=== PATIENT | female | born 1940 | race Two or more races ===

== ENCOUNTER → 2016-10-02 | Outpatient (CLI) | payer MEDICARE, OTHER ==
[~2016-10-02] MED LIST: DENOSUMAB 60 MG/ML 1 ML SYRINGE SQ ONE
[2016-10-02 11:51] VITALS: BP 135/49; PULSE 59; RESP 24; TEMP 98.3
== END ==
LOC: PROCWHC3 11:25
PROVIDERS: ATTEND Internal Medicine Rheumatology
DX: M81.0 Age-related osteoporosis without current pathological fracture (principal)
CPT/HCPCS: 96372; J0897

== ENCOUNTER → 2018-02-22 | Outpatient (CLI) | payer MEDICARE ==
[2018-02-22 10:39] LABS: T4, Free (Free Thyroxine) 1.01 ng/dL (0.78-2.19)
[2018-02-22 19:23] LABS: Hemoglobin A1C 6.6 % (4.0-6.0)
== END | disposition home or self-care (01) ==
LOC: LABWHC1 09:16
PROVIDERS: ATTEND Internal Medicine
DX: E78.00 Pure hypercholesterolemia, unspecified (principal); E11.9 Type 2 diabetes mellitus without complications; I10 Essential (primary) hypertension
CPT/HCPCS: 36415; 80061; 83036; 84439; 84443

== ENCOUNTER → 2018-02-22 | Outpatient (CLI) | payer MEDICARE ==
[2018-02-22 10:03] LABS: Basophils % (A) 1 %; Eosinophils # (A) 0.3 k/uL (0-0.7); Eosinophils % (A) 4 %; HCT 35.9 % (34.0-46.0); HGB 11.5 gm/dL (11.4-16.0); Lymphocytes # (A) 0.9 k/uL (1.0-4.8); Lymphocytes % (A) 14 %; MCH 30.3 pg (25.0-35.0); MCHC 32.2 g/dL (31.0-37.0); MCV 94.2 fL (80.0-100.0); Mean Platelet Volume 6.9; Monocytes # (A) 0.3 k/uL (0-1.0); Monocytes % (A) 5 %; Neutrophils # (A) 4.8 k/uL (1.3-7.7); Neutrophils % (A) 75 %; Platelet Count 229 k/uL (150-450); RBC 3.81 m/uL (3.80-5.40); RDW 15.1 % (11.5-15.5); WBC 6.4 k/uL (3.8-10.6)
[2018-02-22 10:11] LABS: INR 1.1 (<1.2); Partial Thromboplastin Time 23.1 sec (22.0-30.0)
[2018-02-22 10:15] LABS: Albumin 3.7 g/dL (3.5-5.0); Calcium 8.8 mg/dL (8.4-10.2); Potassium 4.6 mmol/L (3.5-5.1); Total Bilirubin 0.5 mg/dL (0.2-1.3); Total Protein 6.1 g/dL (6.3-8.2)
[2018-02-22 10:51] LABS: Amorphous Sediment,Urine Moderate /hpf; Appearance,Urine Cloudy (Clear); Bilirubin,Urine Negative (Negative); Blood,Urine Negative (Negative); Color,Urine Yellow; Glucose,Urine (UA) Negative (Negative); Ketones,Urine Negative (Negative); Leukocyte Esterase,Urine Moderate (Negative); Nitrite,Urine Negative (Negative); Protein,Urine Trace (Negative); Specific Gravity,Urine 1.015 (1.001-1.035); Squamous Epithelial Cell,Urine 4 /hpf (0-4); Urobilinogen,Urine <2.0 mg/dL (<2.0); WBC,Urine 8 /hpf (0-5)
== END | disposition home or self-care (01) ==
LOC: LABPAT 09:11
PROVIDERS: ATTEND Orthopaedic Surgery Sports Medicine
DX: Z01.812 Encounter for preprocedural laboratory examination (principal); Z01.818 Encounter for other preprocedural examination; Z79.01 Long term (current) use of anticoagulants
CPT/HCPCS: 36415; 80053; 81001; 85025; 85610; 85730; 87070; 93005

== ENCOUNTER → 2018-11-15 | Outpatient (CLI) | payer MEDICARE, OTHER ==
[2018-11-15 11:57] LABS: Basophils # (A) 0.1 k/uL (0-0.2); Basophils % (A) 1 %; Eosinophils # (A) 0.3 k/uL (0-0.7); Eosinophils % (A) 4 %; HCT 34.6 % (34.0-46.0); HGB 10.8 gm/dL (11.4-16.0); Hypochromasia Slight; Lymphocytes # (A) 1.4 k/uL (1.0-4.8); Lymphocytes % (A) 20 %; MCH 28.9 pg (25.0-35.0); MCHC 31.1 g/dL (31.0-37.0); MCV 92.7 fL (80.0-100.0); Monocytes # (A) 0.4 k/uL (0-1.0); Monocytes % (A) 6 %; Neutrophils # (A) 4.7 k/uL (1.3-7.7); Neutrophils % (A) 67 %; Platelet Count 244 k/uL (150-450); RBC 3.74 m/uL (3.80-5.40); RDW 14.7 % (11.5-15.5)
[2018-11-15 12:07] LABS: Potassium 4.4 mmol/L (3.5-5.1)
[2018-11-15 12:16] LABS: Partial Thromboplastin Time 23.5 sec (22.0-30.0); Prothrombin Time 11.1 sec (9.0-12.0)
[2018-11-15 12:24] LABS: Appearance,Urine Clear (Clear); Bacteria,Urine Occasional /hpf; Bilirubin,Urine Negative (Negative); Blood,Urine Negative (Negative); Color,Urine Light Yellow; Glucose,Urine (UA) Negative (Negative); Ketones,Urine Negative (Negative); Leukocyte Esterase,Urine Large (Negative); Nitrite,Urine Negative (Negative); Protein,Urine Negative (Negative); RBC,Urine <1 /hpf (0-5); Specific Gravity,Urine 1.006 (1.001-1.035); Squamous Epithelial Cell,Urine 1 /hpf (0-4); Urobilinogen,Urine <2.0 mg/dL (<2.0); WBC,Urine 54 /hpf (0-5)
== END | disposition home or self-care (01) ==
LOC: LABPAT 10:48
PROVIDERS: ATTEND Orthopaedic Surgery
DX: Z01.818 Encounter for other preprocedural examination (principal); M16.11 Unilateral primary osteoarthritis, right hip; Z01.812 Encounter for preprocedural laboratory examination
CPT/HCPCS: 80051; 81001; 82565; 84520; 85025; 85610; 85730; 86850; 86900; 86901; 87070; 93005

== ENCOUNTER 2018-11-26 05:37 | Inpatient (IN) | payer MEDICARE, OTHER ==
[~2018-11-26 05:37] MED LIST changes: +ACETAMINOPHEN TAB 500 MG TAB PO ONE; +CLINDAMYCIN 900 MG in DEXTROSE 5% IN WATER 50 ML IVPB ONE; -DENOSUMAB 60 MG/ML 1 ML SYRINGE SQ ONE; +MELOXICAM 7.5 MG TAB PO ONE; +TRANEXAMIC ACID 1,000 MG in SODIUM CHLORIDE 0.9% 100 ML IVPB ONE
[2018-11-26] MEDS ORDERED: HYDROmorphone 0.5 MG/0.5 ML SYRINGE IVP PRN ×4 (05:50→06:58)
[2018-11-26] MEDS ORDERED: ONDANSETRON 4 MG/2 ML VIAL IVP ONE (05:50)
[2018-11-26] MEDS ORDERED: DEXAMETHASONE SOD PHOSPHATE 10 MG/ML 1 ML VIAL IV ONE (05:50)
[2018-11-26] MEDS ORDERED: MIDAZOLAM 2 MG/2 ML VIAL IV PRN (05:50)
[2018-11-26] MEDS ORDERED: ROPIVACAINE 246.25 MG, EPINEPHrine 0.5 MG, KETOROLAC 30 MG, cloNIDine HCL/PF 80 MCG, WA... MISCELLANE ONE ×5 (05:51)
[2018-11-26 06:44] LABS: Glucose,Whole Blood 113 mg/dL (75-99)
[2018-11-26] MEDS: LACTATED RINGERS 1,000 ML IV SCH (06:44)
[2018-11-26] MEDS ORDERED: LIDOCAINE 1% 20 ML VIAL (10MG/ML) FOR IV START INTRADERMA ONE (06:45)
[2018-11-26] MEDS ORDERED: ePHEDrine SULFATE/0.9% NACL/PF 50 MG/5 ML SYRINGE IV ONE (06:54)
[2018-11-26] MEDS ORDERED: fentaNYL (PF) 50 MCG/ML 2 ML AMP ONE (06:54)
[2018-11-26] MEDS ORDERED: SODIUM CHLORIDE 0.9% 100 ML BAG ONE (06:54)
[2018-11-26] MEDS ORDERED: PROPOFOL 10 MG/ML 20 ML VIAL IV ONE (06:54)
[2018-11-26] MEDS ORDERED: MIDAZOLAM 2 MG/2 ML VIAL ONE (06:54)
[2018-11-26] MEDS ORDERED: LACTATED RINGERS 1,000 ML BAG IV ONE (06:54)
[2018-11-26] MEDS ORDERED: TRANEXAMIC ACID 1,000 MG/10 ML VIAL ONE (06:54)
[2018-11-26] MEDS ORDERED: HEPARIN SODIUM,PORCINE 10,000 UNIT/ML 1 ML VIAL ONE (06:54)
[2018-11-26] MEDS ORDERED: hydrOXYzine PAMOATE 25 MG CAP PO PRN (06:58)
[2018-11-26] MEDS ORDERED: NALOXONE 0.4 MG/ML 1 ML VIAL IV PRN (06:58)
[2018-11-26] MEDS ORDERED: DIAZEPAM 5 MG TAB PO PRN (06:58)
[2018-11-26] MEDS ORDERED: ONDANSETRON 4 MG/2 ML VIAL IVP PRN (06:58)
[2018-11-26] MEDS ORDERED: HYDROcodone/APAP 5-325MG 1 EACH TAB PO PRN ×2 (06:58)
[2018-11-26] MEDS ORDERED: MAGNESIUM HYDROXIDE 2,400 MG/10 ML CUP PO PRN (06:58)
[2018-11-26] MEDS ORDERED: LACTATED RINGERS 1,000 ML IV ONE (08:15)
--- NOTE | 2018-11-26 08:40 | P.OP ---
Date of Procedure: 11/26/18 Preoperative Diagnosis: Severe osteoarthritis right hip Postoperative Diagnosis: Severe osteoarthritis right hip Procedure(s) Performed: Right total hip arthroplasty with a direct anterior approach Implants: Rivas and nephew Polarstem size 3 standard Rivas [employer] Nephew R3, 3 hole acetabular shell, 52 mm Rivas [employer] Nephew reflection 6.5 mm cancellus screw, 20 mm 2 Rivas [employer] Nephew R3, XLPE 20 acetabular liner Rivas & Nephew Oxinium femoral head 36 m, +4 All components were press-fit. The articulation is Oxinium on polyethylene. Anesthesia: spinal Surgeon: Ga Guillaume Flight Engineer Instructor #1: Agnes Butr Estimated Blood Loss (ml): 200 (65 mL returned with Cell Saver) Pathology: other (Femoral head) Condition: stable Disposition: PACU Indications for Procedure: After failure of conservative treatment we discussed the surgical and nonsurgical treatment options at length. Patient wishes to proceed with a total hip arthroplasty with a direct anterior approach. Complications specific to this procedure were discussed at length, including but not limited to infection, leg length discrepancy, dislocation, and nerve injury. Patient is aware of all these complications and informed consent was obtained Operative Findings: The operative findings are consistent with severe osteoarthritis of the right hip Description of Procedure: Patient was seen and evaluated in the preoperative area, consent was reviewed, and the surgical site was marked with a skin marker. Patient was then brought to the operating room and given prophylactic antibiotics intravenously. 1 g of Tranexamic acid was also given. A spinal anesthetic was administered by the anesthesia department. The patient was then placed on the [place] table with the bony prominences well-padded. The hip area was then prepped and draped in usual sterile fashion. A universal timeout was then performed, which confirmed the patient's name, surgical site, ALLERGIES, and procedure being performed. Next the incision site was located at 1 cm distal and 1 cm lateral to the anterior superior iliac spine. The skin and subcutaneous tissues were sharply incised. Incision was carefully dissected down to the fascia overlying the tensor fascia wicho muscle. This fascia was then incised in line with the incision. Next, using blunt finger dissection, the tensor fascia wicho muscle was dissected off its investing fascia. The muscle was then carefully retracted laterally with a cobra retractor over the lateral neck of the femur. Next, the circumflex vessels were identified and cauterized using the AquaMantis device. The anterior hip capsule was then exposed. The capsule was then opened and an inverted T fashion. Cobra retractors were then placed intracapsularly. The proximal femur was then visualized. The femoral neck was then osteotomized appropriate level above the lesser trochanter. Small amount of traction was placed with the [place] table. A small wedge of bone was then removed from the remaining femoral head. Next, using a corkscrew femoral head was easily removed from the acetabulum. On gross visual inspection, the femoral head had complete loss of articular cartilage in mu ltiple periarticular osteophytes. Attention was then turned to the acetabulum. the acetabulum was exposed and any remaining labrum was excised. Sequential reaming of the acetabulum was performed using fluoroscopic guidance. When the appropriate size was reached, a trial was then placed. The position and fit of the trial was checked with fluoroscopy. The trial was then removed. Then, using fluoroscopic guidance, the final implant was impacted at 20 of anteversion and 40 of abduction, and fully seated in the acetabulum. 2 screws were then placed in the acetabulum. Again fluoroscopy was used to check position of the screws. Next, the liner was then impacted, with a 20 elevated liner located in the anterior superior quadrant. Component locking was confirmed. Attention was then directed to the femur. With the aid of the [place] table, the femur was externally rotated to approximately 130, extended, and abducted under the opposite leg. A side hook was then placed under the proximal femur, and the side hook elevator was used to elevate the proximal femur. Retractors were then placed. A capsular release was performed, as well as a release of the conjoined tendon, which afforded excellent visualization of the proximal femur. Next, a box osteotome was used to lateralize the proximal femur. A shipping and receiving material handler was then used to locate the femoral canal. Sequential broaching was then performed with appropriate size which afforded excellent fixation in the proximal femur. A trial was then placed with appropriate head and neck, and the hip was gently reduced with the aid of the [place] table. Fluoroscopy was then used to check position of the components, as well as to ensure equal leg lengths. The hip was then gently dislocated and the trials were then removed. Final implants were then impacted and the hip was again reduced. Final fluoroscopic x-rays confirmed that the components were in anatomic position, as well as equal leg lengths. The hip was also taken through range of motion, and found to be stable. The hip was then copiously irrigated with antibiotic solution with pulsatile lavage. The hip was then irrigated with Irrisept solution. The soft tissues were then injected with a ropivacaine solution, which consisted of 246.25 mg of ropivacaine, 0.5 mg of epinephrine, 30 mg of Toradol, 80 g of clonidine, and 48.45 mL of sterile water, for a total of 100 mL of fluid injected. A second dose of 1 g of Tranexamic acid was also given. the fascia was then closed with 2-0 strata fix suture. The subcutaneous tissue was closed with 3-0 Vicryl. The subcuticular tissue was closed with 3-0 strata fix suture. The skin was then closed with Dermabond glue and a sterile silver dressing. The patient was then transferred to the recovery room in stable co ndition. The dental laboratory assistant YOANDY Ling was required due to the complexity of surgery, and the need for skilled surgical instrument repair specialist for positioning, draping, exposure, retraction, and closure of the wound.
[2018-11-26] MEDS ORDERED: diphenhydrAMINE 50 MG/ML 1 ML VIAL IVP ONE (08:53)
--- NOTE | 2018-11-26 09:12 | XR ---
EXAMINATION TYPE: XR Hip Limited RT DATE OF EXAM: 11/26/2018 COMPARISON: NONE HISTORY: 78-year-old female status post hip surgery, assess surgical alignment TECHNIQUE: Single AP portable view FINDINGS: Image shows placement of right total hip arthroplasty. Acetabular cup and femoral stem component of t he prosthesis appear well seated without periprosthetic fracture. Alignment grossly anatomic. Scatter ed soft tissue air related to recent operation. IMPRESSION: Uncomplicated right hip total arthroplasty.
--- NOTE | 2018-11-26 10:55 | FL ---
Fluoroscopy HISTORY: Hip arthroplasty 52 seconds fluoroscopy time supplied to the referring clinician. 2 intraoperative C-arm images docum ent the procedure. See dictated report from orthopedic surgery.
--- NOTE | 2018-11-26 10:56 | XR ---
Limited right hip HISTORY: Right hip arthroplasty 2 intraoperative C-arm images document the procedure.
[2018-11-26] MEDS: ASPIRIN 325 MG TAB PO SCH ×2 (12:09→20:52)
[2018-11-26] MEDS: SODIUM CHLORIDE 0.9% 1,000 ML IV SCH ×2 (12:10→22:27)
[2018-11-26 12:13] VITALS: BMI 33.9
[2018-11-26 12:22] LABS: Glucose,Whole Blood 162 mg/dL (75-99)
[2018-11-26] MEDS: CLINDAMYCIN 900 MG in DEXTROSE 5% IN WATER 50 ML IVPB SCH ×4 (16:49→23:00)
[2018-11-26] MEDS: metFORMIN 500 MG TAB PO SCH (16:56)
[2018-11-26] MEDS: INSULIN ASPART (NovoLOG) 100 UNIT/ML VIAL SQ SCH ×2 (16:56→20:52)
[2018-11-26 17:05] LABS: Glucose,Whole Blood 235 mg/dL (75-99)
[2018-11-26 20:14] LABS: Glucose,Whole Blood 185 mg/dL (75-99)
[2018-11-26] MEDS ORDERED: SENNOSIDES-DOCUSATE SODIUM 1 EACH TAB PO SCH (21:00)
[2018-11-27] MEDS: LACTATED RINGERS 1,000 ML IV SCH (07:06)
[2018-11-27 07:11] LABS: Glucose,Whole Blood 107 mg/dL (75-99)
[2018-11-27] MEDS: INSULIN ASPART (NovoLOG) 100 UNIT/ML VIAL SQ SCH (07:21)
[2018-11-27 07:22] VITALS: BP 106/58; PULSE 73; RESP 12; TEMP 98.5
[2018-11-27] MEDS ORDERED: PANTOPRAZOLE 40 MG TABLET PO SCH (07:30)
[2018-11-27] MEDS: metFORMIN 500 MG TAB PO SCH (08:05)
[2018-11-27] MEDS: ASPIRIN 325 MG TAB PO SCH (08:05)
--- NOTE | 2018-11-27 08:49 | P.DS ---
Providers Date of admission: 11/26/18 05:37 Expected date of discharge: 11/27/18 Attending physician: Ga Guillaume Consults: 11/26/18 06:58 Consult Physician Routine Consulting Provider: Sona Friedman Consult Reason/Comments: medical management Do you want consulting provider notified?: Yes 11/26/18 11:51 Consult Physician Routine Consulting Provider: Fausto Grayson Consult Reason/Comments: medical management Do you want consulting provider notified?: Yes Primary care physician: Sona Friedman - Discharge Diagnosis(es) (1) Osteoarthritis of right hip Current Visit: Yes Status: Acute (2) Status post total hip replacement, right Current Visit: Yes Status: Acute Hospital Course: This is a 78-year-old female with known history of degenerative arthritis of the right hip. The patient presents for evaluation. After discussion and consideration patient elects to proceed with total hip arthroplasty. The patient is seen preoperatively by Dr. Guillaume and medically cleared for surgery by their primary care physician. Patient is admitted to [facility] on 11/26/2018 for total hip arthroplasty. The procedures performed without complication or sequelae. The patient is doing well postoperatively. Labs and vital signs are stable on day of discharge. On day of discharge patient's hip incision is healing well. There is minimal erythema. There is no drainage noted at this time. There is minimal soft tissue swelling to the hip and thigh. Patient has full foot and ankle motion without difficulty or pain. Calf is soft and nontender to palpation. Neurovascular status to the right lower extremity is intact. Patient is discharged home in good condition. Opioid start talking form is reviewed and signed at patient bedside. Please see med rec for accurate list of home me dications. Plan - Discharge Summary Discharge Rx Participant: Yes New Discharge Prescriptions: New Aspirin 325 mg PO BID #60 tab HYDROcodone/APAP 5-325MG [[place] 5-325] 1 - 2 tab PO Q6HR PRN #56 tab PRN Reason: Pain Sennosides [Senokot] 1 tab PO BID #60 tablet No Action Omeprazole [PriLOSEC] 20 mg PO AC-BRKFST Lisinopril-Hctz 10-12.5 mg [Zestoretic 10-12.5] 1 tab PO DAILY metFORMIN HCL [Glucophage] 1,000 mg PO BID Cholecalciferol [Vitamin D3] 1,000 units PO DAILY Ascorbic Acid [Vitamin C] 1,000 mg PO QAM Potassium 99 mg PO QAM Atorvastatin [Lipitor] 40 mg PO DAILY Prolia(Dose Unknown) 1 dose IJ Q180D Biotin 10,000 mcg PO DAILY Acetaminophen [Tylenol Extra Strength] 1,000 mg PO BID PRN PRN Reason: Pain Docusate [Colace] 100 mg PO BID #60 capsule [place]-3 Fatty Acids [[place]-3] 1,000 mg PO DAILY Magnesium/Calcium/Zinc 1 tab PO DAILY Discharge Medication List Lisinopril-Hctz 10-12.5 mg [Zestoretic 10-12.5] 1 tab PO DAILY 03/19/14 [History] Omeprazole [PriLOSEC] 20 mg PO AC-BRKFST 03/19/14 [History] metFORMIN HCL [Glucophage] 1,000 mg PO BID 03/19/14 [History] Cholecalciferol [Vitamin D3] 1,000 units PO DAILY 09/17/14 [History] Acetaminophen [Tylenol Extra Strength] 1,000 mg PO BID PRN 02/26/18 [History] Ascorbic Acid [Vitamin C] 1,000 mg PO QAM 02/26/18 [History] Atorvastatin [Lipitor] 40 mg PO DAILY 02/26/18 [History] Biotin 10,000 mcg PO DAILY 02/26/18 [History] Potassium 99 mg PO QAM 02/26/18 [History] Prolia(Dose Unknown) 1 dose IJ Q180D 02/26/18 [History] Docusate [Colace] 100 mg PO BID #60 capsule 03/08/18 [Rx] Magnesium/Calcium/Zinc 1 tab PO DAILY 11/21/18 [History] [place]-3 Fatty Acids [[place]avener-3] 1,000 mg PO DAILY 11/21/18 [History] Aspirin 325 mg PO BID #60 tab 11/27/18 [Rx] HYDROcodone/APAP 5-325MG [[place] 5-325] 1 - 2 tab PO Q6HR PRN #56 tab 11/27/18 [Rx] Sennosides [Senokot] 1 tab PO BID #60 tablet 11/27/18 [Rx] Follow up Appointment(s)/Referral(s): Ga Guillaume DO [Doctor of Osteopathic Medicine] - 2 Weeks Activity/Diet/Wound Care/Special Instructions: Weightbearing as tolerated with walker. Leave dressing intact. Dressing may be removed by home care nurse or by patient in 10 days. May shower with dressing on. Please follow-up with [facility] in 2 weeks and call with any questions or concerns, . Discharge Disposition: HOME WITH HOME HEALTH SERVICES
[2018-11-27] MEDS ORDERED: MELOXICAM 7.5 MG TAB PO SCH (09:00)
[2018-11-27] MEDS ORDERED: LISINOPRIL-HCTZ 10-12.5 MG 1 EACH TAB PO SCH (09:00)
[2018-11-27] MEDS ORDERED: ATORVASTATIN 40 MG TAB PO SCH (09:00)
[2018-11-27 09:14] LABS: Basophils % (A) 0 %; Eosinophils # (A) 0.1 k/uL (0-0.7); Eosinophils % (A) 1 %; HCT 29.2 % (34.0-46.0); Hypochromasia Moderate; Lymphocytes # (A) 1.5 k/uL (1.0-4.8); Lymphocytes % (A) 17 %; MCH 29.2 pg (25.0-35.0); MCHC 31.6 g/dL (31.0-37.0); MCV 92.3 fL (80.0-100.0); Mean Platelet Volume 7.4; Monocytes # (A) 0.6 k/uL (0-1.0); Monocytes % (A) 7 %; Neutrophils # (A) 6.4 k/uL (1.3-7.7); Neutrophils % (A) 74 %; Platelet Count 227 k/uL (150-450); RBC 3.16 m/uL (3.80-5.40); RDW 14.5 % (11.5-15.5); WBC 8.6 k/uL (3.8-10.6)
[2018-11-27 09:21] LABS: HGB 9.2 gm/dL (11.4-16.0)
[2018-11-27] MEDS: SODIUM CHLORIDE 0.9% 1,000 ML IV SCH (10:29)
--- NOTE | 2018-11-27 10:39 | P.CONS ---
History of Present Illness - Reason for Consult Consult date: 11/26/18 Medical management of hypertension and other medical problems - Chief Complaint Status post right total hip arthroplasty - History of Present Illness Patient is a 78-year-old female with a known history of hypertension, diabetes type 2 [id number], hyperlipidemia, osteoarthritis of multiple joints was admitted to the hospital for right total hip arthroplasty. Patient underwent Right total hip arthroplasty with a direct anterior approach. Tolerated the procedure very well. Currently patient is little drowsy from anesthesia. Denied any complaints of chest pain or shortness of breath. No nausea vomiting or abdominal pain. No diarrhea or dysuria. No headache or dizziness or l ightheadedness. Right hip pain is fairly controlled. Review of Systems Constitutional: Patient denies any fever or chills . No generalized weakness or weight loss. Abdomen: Patient denied nausea vomiting and diarrhea and abdominal pain. Cardiovascular: Patient denies any chest pain or short of breath no palpitations. Respiratory: patient denied any cough is from production. No shortness of breath Neurologic: Patient denied any numbness or tingling headache. Musculoskeletal: Patient denies any complaints of joint swelling or deformity. Skin: Negative Psychiatric: Negative Endocrine: No heat or cold intolerance. No recent weight gain. Genitourinary: No dysuria or hematuria. All other 14 point ROS negative except the above Past Medical History Past Medical History: Diabetes Mellitus, Hyperlipidemia, Hypertension Additional Past Medical History / Comment(s): Hx. osteoporosis History of Any Multi-Drug Resistant Organisms: None Reported Past Surgical History: Joint Replacement, Orthopedic Surgery, Tonsillectomy Additional Past Surgical History / Comment(s): total right knee, vincent cataracts, Rectal sx X2, Hx. eyelids lifted Hx. trigger finger release left pointer finger Past Anesthesia/Blood Transfusion Reactions: No Reported Reaction Past Psychological History: No Psychological Hx Reported Smoking Status: Former smoker Past Alcohol Use History: Occasional Additional Past Alcohol Use History / Comment(s): quit smoking 2001, smoked for 48 yrs, 1 PPD Past Drug Use History: None Reported - Past Family History Sister(s) Family Medical History: Cancer Medications and Allergies Home Medications Medication Instructions Recorded Confirmed Type Lisinopril-Hctz 10-12.5 mg 1 tab PO DAILY 03/19/14 11/26/18 History [Zestoretic 10-12.5] Omeprazole [PriLOSEC] 20 mg PO AC-BRKFST 03/19/14 11/26/18 History metFORMIN HCL [Glucophage] 1,000 mg PO BID 03/19/14 11/26/18 History Cholecalciferol [Vitamin D3] 1,000 units PO DAILY 09/17/14 11/26/18 History Acetaminophen [Tylenol Extra 1,000 mg PO BID PRN 02/26/18 11/26/18 History Strength] Ascorbic Acid [Vitamin C] 1,000 mg PO QAM 02/26/18 11/26/18 History Atorvastatin [Lipitor] 40 mg PO DAILY 02/26/18 11/26/18 History Biotin 10,000 mcg PO DAILY 02/26/18 11/26/18 History Potassium 99 mg PO QAM 02/26/18 11/26/18 History Prolia(Dose Unknown) 1 dose IJ Q180D 02/26/18 11/26/18 History Docusate [Colace] 100 mg PO BID #60 capsule 03/08/18 11/26/18 Rx Magnesium/Calcium/Zinc 1 tab PO DAILY 11/21/18 11/26/18 History [place]-3 Fatty Acids [[place]-3] 1,000 mg PO DAILY 11/21/18 11/26/18 History Aspirin 325 mg PO BID #60 tab 11/27/18 Rx HYDROcodone/APAP 5-325MG [[place] 1 - 2 tab PO Q6HR PRN #56 tab 11/27/18 Rx 5-325] Sennosides [Senokot] 1 tab PO BID #60 tablet 11/27/18 Rx Allergies Allergy/AdvReac Type Severity Reaction Status Date / Time cephalexin [From Keflex] Allergy Unknown Unknown Verified 11/26/18 13:09 Childhood Physical Exam Vitals: Vital Signs Temp Pulse Pulse Pulse Resp BP BP 11/26/18 12:05 98.0 F 91 18 108/64 11/26/18 11:30 78 20 103/47 11/26/18 11:00 81 18 108/65 11/26/18 10:30 81 18 92/48 11/26/18 10:00 82 18 94/48 11/26/18 09:45 81 16 80/42 11/26/18 09:30 77 16 85/40 11/26/18 09:15 80 16 113/48 11/26/18 09:01 90 18 102/44 11/26/18 08:47 97.4 F L 99 16 85/48 11/26/18 06:18 98.3 F 69 16 137/65 Pulse Ox 11/26/18 12:05 93 L 11/26/18 11:30 98 11/26/18 11:00 97 11/26/18 10:30 97 11/26/18 10:00 97 11/26/18 09:45 92 L 11/26/18 09:30 92 L 11/26/18 09:15 92 L 11/26/18 09:01 96 11/26/18 08:47 96 11/26/18 06:18 95 Intake and Output 11/25/18 11/26/18 11/26/18 22:59 06:59 14:59 Intake Total 1000 956 Output Total 200 Balance 1000 756 Intake: IV 1000 956 Output: Estimated Blood Loss 200 PHYSICAL EXAMINATION: Patient is lying in the bed comfortably, no acute distress, awake alert and oriented.. HEENT: Normocephalic. Neck is supple. Pupils reactive. Nostrils clear. Oral cavity is moist. Ears reveal no drainage. Neck reveals no JVD, carotid bruits, or thyromegaly. CHEST EXAMINATION: Trachea is central. Symmetrical expansion. Lung still clear to auscultation and percussion. CARDIAC: Normal S1, S2 with no gallops. No murmurs ABDOMEN: Soft. Bowel sounds normal. No organomegaly. No abdominal bruits. Extremities: reveal no edema. No clubbing or cyanosis Neurologically awake, alert, oriented x3 with well-coordinated movements. No focal deficits noted Skin: No rash or skin lesions. Psychiatric: Coperative. Nonsuicidal Musculoskeletal: No joint swelling or deformity. Normal range of motion. Results CBC & Chem 7: 11/27/18 08:24 Labs: Abnormal Lab Results - Last 24 Hours (Table) 11/26/18 11/26/18 Range/Units 06:30 12:06 POC Glucose (mg/dL) 113 H 162 H (75-99) mg/dL Assessment and Plan Assessment: Status post right total hip arthroplasty postoperative day 0. Diabetes type 2 with hyperglycemia. Continue with metformin and insulin sliding scale will be added. Hypertension. Blood pressure in the lower side. Will hold blood pressure medications. Hyperlipidemia Obesity with BMI 33.7 Osteoporosis Primary Osteoarthritis of multiple joints Previous history of smoking DVT prophylaxis Plan: Patient be continued on pain medications and bowel regimen. Encourage ambulation and incentive spirometry. DVT prophylaxis as per orthopedic surgery recommendations. We will hold blood pressure medications. Continue with metformin and insulin sliding scale will be added. Otherwise continue the current management. Will follow closely. Further recommendations based on the critical course. Thank you for your consult. Time with Patient: Greater than 30
== END 2018-11-27 12:01 | disposition home health service (06) | DRG 470 ==
LOC: 2ORMAIN 05:37 → 4SSUR 11:43
PROVIDERS: ADMIT Orthopaedic Surgery; ATTEND Orthopaedic Surgery
PROC: 30233N0 Transfusion of Autologous Red Blood Cells into Peripheral Vein, Percutaneous Approach (ICD-10-PCS; 2018-11-26)
PROC: 0SR906A Replacement of Right Hip Joint with Oxidized Zirconium on Polyethylene Synthetic Substitute, Uncemented, Open Approach (ICD-10-PCS; principal; 2018-11-26 07:00)
DX: M15.9 Polyosteoarthritis, unspecified (principal); E11.65 Type 2 diabetes mellitus with hyperglycemia; E66.9 Obesity, unspecified; E78.5 Hyperlipidemia, unspecified; I10 Essential (primary) hypertension; M81.0 Age-related osteoporosis without current pathological fracture; K21.9 Gastro-esophageal reflux disease without esophagitis; Z68.33 Body mass index [BMI] 33.0-33.9, adult; Z79.82 Long term (current) use of aspirin; Z79.84 Long term (current) use of oral hypoglycemic drugs; Z79.899 Other long term (current) drug therapy; Z87.891 Personal history of nicotine dependence; Z98.42 Cataract extraction status, left eye; Z98.41 Cataract extraction status, right eye; Z96.1 Presence of intraocular lens; Z96.651 Presence of right artificial knee joint; Z82.49 Family history of ischemic heart disease and other diseases of the circulatory system
CPT/HCPCS: 73501; 85025; 86850; 86891; 86900; 86901; 88300

== ENCOUNTER → 2021-03-31 | Outpatient (CLI) | payer MEDICARE, OTHER ==
--- NOTE | 2021-03-31 15:08 | XR ---
EXAMINATION TYPE: XR chest 2V DATE OF EXAM: 03/31/2021 COMPARISON: NONE HISTORY: Shortness of breath TECHNIQUE: Frontal and lateral views of the chest are obtained. FINDINGS: There is no focal air space opacity, pleural effusion, or pneumothorax seen. The cardiac silhouette size is within normal limits. There are prominent lung volumes with flattening the hemidi aphragms, increased AP diameter chest and retrosternal airspace. There is a retrocardiac density with central lucency consistent with hiatal hernia and partial intrathoracic stomach. Aorta is dense. Int erstitium is mildly increased. Pulmonary artery is prominent. The osseous structures are intact. IMPRESSION: There may be underlying interstitial lung disease, there is hiatal hernia with partial i ntrathoracic stomach, correlate for pulmonary artery hypertension, COPD.
== END | disposition home or self-care (01) ==
LOC: RADXRYALE 13:13
PROVIDERS: ATTEND Internal Medicine Cardiovascular Disease
DX: K44.9 Diaphragmatic hernia without obstruction or gangrene (principal)
CPT/HCPCS: 71046

== ENCOUNTER → 2021-09-02 | Outpatient (CLI) | payer MEDICARE, OTHER ==
--- NOTE | 2021-09-08 15:12 | PE ---
Nuclear medicine PET/CT HISTORY: Solitary pulmonary nodule, initial Patient received 10.1 mCi F-18 FDG intravenously and delayed scanning was performed from the skull ba se to the mid thighs. A localization and attenuation correction CT scan was performed. Correlation to CT chest dated 08/11/2021 Chest and neck: There is mediastinal, left hilar adenopathy with precarinal and subcarinal abnormal n odes with associated hypermetabolic uptake, SUV 11.1 precarinal region, 10.8 left hilar region. Left lower lobe lung mass is present, there is associated hypermetabolic uptake SUV 10. No axillary, cervi omkar, supraclavicular adenopathy. Prevascular enlarged node on axial image 78 shows no associated upta ke. Hiatal hernia with partial intrathoracic stomach is present. There is pericardial effusion. Coron carrie artery calcifications are noted. Atheromatous change present within the aorta, aneurysm of the as cending aorta, 4.2 cm, proximal descending aorta 3.5 cm, aorta at the hiatus measures 3.3 cm. Pulmona ry arteries enlarged, correlate for pulmonary artery hypertension, the heart is enlarged. No pleural effusion. The lungs show interstitial changes, centrilobular emphysematous change, there is associate d scarring. Low dense soft tissue nodule anterior to the ascending aorta shows no uptake. ABDOMEN: There is no suspicious uptake. Mild prominence of the adrenal glands is noted which are low density. There is no evident liver mass or retroperitoneal adenopathy. Atheromatous change present wi thin the aorta which is ectatic in the infrarenal location. Uptake along the colon is indeterminate b ut likely physiologic. There is no ascites. Uterus and adnexal structures within normal limits. Osseous structures: There is streak artifact due to patient's right hip prosthesis. No suspicious upt sera. Degenerative disc changes and facet arthropathy noted in the spine. Some inflammatory change not ed in left maxillary sinus. Arthropathy noted at the sacroiliac joints. 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 Cardiomegaly and pericardia l effusion.
== END | disposition home or self-care (01) ==
LOC: RADPETMAIN 12:37
PROVIDERS: ATTEND Nurse Practitioner Adult Health
DX: R91.1 Solitary pulmonary nodule (principal); I31.3 Pericardial effusion (noninflammatory); I51.7 Cardiomegaly
CPT/HCPCS: 78815; A9552

== ENCOUNTER 2021-10-06 10:54 | Day surgery (SDC) | payer MEDICARE, OTHER ==
[2021-10-04 14:16] VITALS: BMI 35.0
[~2021-10-06 10:54] MED LIST changes: -ACETAMINOPHEN TAB 500 MG TAB PO ONE; +ALBUTEROL NEB (CONC) 2.5 MG/0.5 ML INHALATION ONE; -CLINDAMYCIN 900 MG in DEXTROSE 5% IN WATER 50 ML IVPB ONE; +LACTATED RINGERS 1,000 ML IV SCH; +LIDOCAINE 1% (10MG/ML) FOR IV START INTRADERMA PRN; +LIDOCAINE 2% (PF) 20 MG/ML 5 ML VIAL INHALATION ONE; +LIDOCAINE VISCOUS 300 MG/15 ML CUP MUCOUS MEM ONE; -MELOXICAM 7.5 MG TAB PO ONE; +MIDAZOLAM 2 MG/2 ML VIAL IV PRN; +SODIUM CHLORIDE 0.9% 1,000 ML IV SCH; -TRANEXAMIC ACID 1,000 MG in SODIUM CHLORIDE 0.9% 100 ML IVPB ONE
[2021-10-06 11:45] LABS: Glucose,Whole Blood 122 mg/dL (75-99)
[2021-10-06] MEDS ORDERED: LIDOCAINE 1% INJ 10MG/ML (20 ML MDV) ONE (12:52)
[2021-10-06] MEDS ORDERED: ROCURONIUM 10 MG/ML (5 ML VIAL) IV ONE (12:52)
[2021-10-06] MEDS ORDERED: SUCCINYLCHOLINE CHLORIDE 100 MG/5 ML SYR IV ONE (12:52)
[2021-10-06] MEDS ORDERED: PROPOFOL 10 MG/ML 20 ML VIAL IV ONE (12:52)
--- NOTE | 2021-10-06 12:56 | CT ---
EXAMINATION TYPE: CT Chest krissy Ojeda Protocol DATE OF EXAM: 10/06/2021 COMPARISON: 08/11/2021, PET scan to 1821 HISTORY: Bronchoscopy guidance. CT DLP: 610 mGycm Automated exposure control for dose reduction was used. FINDINGS: AIRWAYS: Unremarkable. LUNGS: There is a 3.5 cm ill-defined left lower lobe bronchogenic mass consistent with bronchogenic c arcinoma unless proven otherwise. There are prominent emphysematous changes. No acute lung parenchyma l findings. PLEURAL SPACES: Unremarkable. MEDIASTINUM: The pulmonary arterial tree is prominent in caliber suggesting pulmonary hypertension. A winsome atherosclerosis with mild aneurysmal dilation measuring 4.1 cm. There is mild cardiomegaly and a small pericardial effusion. Prominent left and right coronary calcifications noted. There is confluent pretracheal, precarinal, and subcarinal mediastinal adenopathy, [id number] d egree - and mild left hilar adenopathy also noted. Narrowing of the left mainstem bronchus noted whic h may be related to external compression from the adenopathy. Large hiatal hernia noted. OTHER: No axillary or supraclavicular adenopathy. No splenomegaly. No visualized subdiaphragmatic nancy nopathy. Is a hiatal hernia noted. Thickening of bilateral adrenal nonspecific. Hypertrophic and dege nerative changes of the spine. IMPRESSION: 1. . 3.5 CM LEFT LOWER LOBE BRONCHOGENIC MASS CONSISTENT WITH CARCINOMA STABLE FROM PRIOR EXAM. . 2. PULMONARY ARTERY ENLARGEMENT CORRELATE FOR PULMONARY ARTERIAL HYPERTENSION. CARDIOMEGALY AND SM ALL TO MODERATE PERICARDIAL EFFUSION ALSO NOTED. Pericardial effusion appears progressed. 3. MEDIASTINAL/HILAR ADENOPATHY. 4. COPD
[2021-10-06 14:12] VITALS: TEMP 97.5
--- NOTE | 2021-10-06 14:18 | P.PCN ---
Date of Procedure: 10/06/21 Preoperative Diagnosis: left infrahilar mass, mediastinal lymphadenopathy Postoperative Diagnosis: left infrahilar mass, mediastinal lymphadenopathy Procedure(s) Performed: endobronchial ultrasound/EBUS EBUS guided transbronchial left hilar mass EBUS guided transbronchial needle aspirate of the paratracheal mass/lymphadenopathy Endobronchial biopsy/brushing of a left lower lobe bronchus endobronchial growth/tumor. Anesthesia: GETA Surgeon: Rossana Reeves Degreaser Operator #1: Maria Isabel Lynn Pathology: other Condition: stable Disposition: same day Operative Findings: 81-year-old female patient referred to us for lung mass. The patient had a left lower lobe posterior segment mass in addition to left infrahilar mass and mediastinal lymphadenopathy. The patient was scheduled to undergo an indication of bronchoscopy and endobronchial ultrasound. The patient was brought in to the hospital with a CAT scan of the chest was done for planning purposes and appropriate mapping of the left lower lobe mass was done. Following that, the V pad was applied to the patient's chest and the patient was brought into the endoscopy suite where she was intubated and placed on a mechanical ventilator in the usual fashion. A consent was obtained preoperatively. A timeout was also done. Following intubation mechanical ventilation, the airway was secured and ET tube was noted to be around 3 cm above the fredi. The flexible bronchoscopy was done for airway inspection and the distal trachea was within normal limits. Examination of the right side included the right mainstem bronchus, right upper lobe bronchus, bronchus intermedius, right middle lobe bronchus and right lower lobe bronchus. Examination of the right that was within normal limits. The examination of the left side include the left mainstem bronchus and left mainstem bronchus was obviously abnormal and the air was being gradually tapered off distally. The secondary fredi the left upper lobe and the left lower lobe was noted. I noted that the left mainstem bronchus was being medially compressed and narrowed. There was also some endobronchial growth /irregularities in the distal left mainstem bronchus just before the branching between the upper and left lower lobe. Along the posterior segment of the posterior surface of the left mainstem bronchus and there were polypoid lesions that were quite friable and irregular, highly suspicious for endobronchial extension of the left infrahilar mass. The bronchoscope was moved to the lower lobe bronchus and the various segments were noted including the anterior, lateral and posterior and the superior. Examination of the left upper lobe was essentially within normal limits and this included the lingular segment and apical posterior and anterior segments. Following that, the Endobronchial (EBUS) ultrasound was introduced and undergoes direct examination, we were able to observe a large paratracheal lymphadenopathy/mass that was more than 3 cm in size and another mass was also noted in the left infrahilar area again measuring more than 3 cm in size. Using EBUS guidance, transbronchial needle aspirate of the left infrahilar mass was done, a total of 4 passes and transbronchial needle aspirate of the paratracheal mass was done a total of 5 passes. The adequacy of the samples were confirmed by pathology. Cell block were prepared. Following that, the EBUS bronchoscope was removed. Using a regular bronch oscope, endobronchial biopsies of the distal left mainstem posterior wall endobronchial growth was performed. Endobronchial brushings of the same area was done. At the completion of the procedure, the navigational guidance was used to identify the left lower lobe posterior mass. The left lower lobe posterior mass was not found to be accessible and accordingly, no biopsies of the left lower lobe mass was done. Therapeutic airway suctioning was done. Bronchoscope was removed. Patient was extubated and transferred to recovery in stable condition. The samples collected by the EBUS from the mediastinum and the left hilum were enough to establish final diagnosis on this patient. Further recommendations are to follow accordingly.
[2021-10-06 14:52] VITALS: RESP 20
[2021-10-06] MEDS ORDERED: FUROSEMIDE 10 MG/ML 2 ML VIAL IV ONE (15:08)
--- NOTE | 2021-10-06 15:36 | XR ---
EXAMINATION TYPE: XR chest 1V DATE OF EXAM: 10/06/2021 COMPARISON: 03/31/2021 INDICATION: Cough post bronchoscopy TECHNIQUE: Single frontal view of the chest is obtained. FINDINGS: The heart size is enlarged. The pulmonary vasculature is normal. Mild diffuse increased lung markings are present on the left. Focal consolidations in the posterior l eft lung base and at the right costophrenic angle. No pneumothorax is evident. IMPRESSION: 1. No pneumothorax post bronchoscopy. 2. Left lower lobe consolidation.
[2021-10-06 15:39] VITALS: BP 123/69
[2021-10-06 16:03] VITALS: PULSE 71
== END 2021-10-06 16:17 ==
LOC: ORWHC2ENDO 10:54
PROVIDERS: ATTEND Internal Medicine Critical Care Medicine
DX: C34.32 Malignant neoplasm of lower lobe, left bronchus or lung (principal); E78.00 Pure hypercholesterolemia, unspecified; J44.9 Chronic obstructive pulmonary disease, unspecified; K44.9 Diaphragmatic hernia without obstruction or gangrene; I10 Essential (primary) hypertension; E11.9 Type 2 diabetes mellitus without complications; Z87.891 Personal history of nicotine dependence; Z86.16 Personal history of COVID-19; Z96.641 Presence of right artificial hip joint; Z96.651 Presence of right artificial knee joint; Z98.890 Other specified postprocedural states; Z79.84 Long term (current) use of oral hypoglycemic drugs; Z79.51 Long term (current) use of inhaled steroids; Z79.899 Other long term (current) drug therapy; Z99.81 Dependence on supplemental oxygen
CPT/HCPCS: 88104; 88305; 88173; 71045; 71250; 31625; 31623; 31627; 31653; J1940; J2001; J0330; J2704; 88341; 88342

== ENCOUNTER → 2021-10-21 | Outpatient (CLI) | payer MEDICARE, OTHER ==
--- NOTE | 2021-10-23 21:38 | MR ---
EXAMINATION TYPE: MR brain wo/w con DATE OF EXAM: 10/21/2021 COMPARISON: NONE HISTORY: Lung cancer. TECHNIQUE: Multiplanar, multisequence images of the brain and brainstem is performed without and with IV contras t, utilizing 9 mL intravenous Gadavist . FINDINGS: There is background mild ventricular and sulcal prominence. There is background scattered f ocal and confluent areas of T2 hyperintensity seen throughout the white matter bilaterally greatest i nvolving the bilateral frontal lobes. Midline structures demonstrate normal morphology. The craniocervical junction appears within normal limits. Postcontrast images show single ring-enhancing 7 x 7 x 6 mm lesion right frontal lobe axial image 29 and coronal image 19 with restricted diffusion consistent with metastatic focus as there is some surr ounding vasogenic edema extending inferiorly. Dural venous sinuses are patent. The globes are intact. There is mild to moderate mucosal thickening involving the ethmoid sinuses bilaterally. IMPRESSION: 1. Single rim-enhancing 7 mm right frontal lesion felt to reflect metastatic disease in patient with history of lung cancer. 2. Background Mild diffuse cerebral atrophy and mild to moderate chronic small vessel change is noted .
== END | disposition home or self-care (01) ==
LOC: RADMRIMAIN 20:21
PROVIDERS: ATTEND Internal Medicine Hematology & Oncology
DX: C34.92 Malignant neoplasm of unspecified part of left bronchus or lung (principal); C79.31 Secondary malignant neoplasm of brain; I67.82 Cerebral ischemia; G31.9 Degenerative disease of nervous system, unspecified
CPT/HCPCS: 70553; A9585

== ENCOUNTER → 2022-01-09 | Outpatient (CLI) | payer MEDICARE, OTHER | END | disposition home or self-care (01) | LOC: LABWHC1 10:38 | PROVIDERS: ATTEND Radiology Radiation Oncology | DX: C34.32 Malignant neoplasm of lower lobe, left bronchus or lung (principal); C77.1 Secondary and unspecified malignant neoplasm of intrathoracic lymph nodes; C79.31 Secondary malignant neoplasm of brain; R00.0 Tachycardia, unspecified; R94.31 Abnormal electrocardiogram [ECG] [EKG] | CPT/HCPCS: 36415; 93005 ==

== ENCOUNTER → 2022-01-17 | Outpatient (CLI) | payer MEDICARE, OTHER ==
--- NOTE | 2022-01-17 11:09 | CT ---
"EXAMINATION TYPE: CT chest w con DATE OF EXAM: 01/17/2022 COMPARISON: PET CT 09/02/21 HISTORY: Lung ca observe for mets CT DLP: 384.20 mGycm Automated exposure control for dose reduction was used. CONTRAST: CT scan of the chest is performed with IV Contrast, patient injected with 70 mL of Isovue 300. FINDINGS: LUNGS: Spiculated mass left lower lobe persists although is much smaller in size and currently measur es 1.3 cm x 0.8 cm versus previous measurement of 3.5 cm. There is a new well-circumscribed pulmonary nodule right lower lobe measuring 9.2 mm. No additional new nodules or masses seen. Upper lobe emphy sematous change. Mild emphysematous changes in right lower lobe. There is stable focal pleural thicke jessi right lower lobe. MEDIASTINUM/HILUM: Large fixed hiatal hernia redemonstrated. Resolution of previously noted hilar nancy nopathy. Persistent but much improved subcarinal adenopathy measuring 2.2 cm AP dimension versus 3.2 cm previously. Much improved paratracheal adenopathy. Ascending thoracic aortic aneurysm measuring 4.3 cm with ectasia of the descending thoracic aorta. Th e heart is enlarged. UPPER ABDOMEN: No significant abnormality appreciated. OTHER: Mural-based thrombus second and third order branches left lower lobe consistent with pulmona ry embolism of uncertain chronicity possibly chronic in nature. Prominence of the pulmonary arteries could reflect underlying pulmonary arterial hypertension. IMPRESSION: 1. Spiculated mass left lower lobe persists although is much smaller in size as noted above. 2. Much improved hilar and mediastinal adenopathy. 3. Mural-based thrombus second and third order branches left lower lobe consistent with pulmonary emb olism of uncertain chronicity possibly chronic in nature. A [place] level critical message alert has been initiated for Sina Jernigan MD via the [employer] 36 0 | Critical Results System on 01/17/2022 11:06 AM. This message alert has been sent to Sina Jernigan MD via the preferences provided by the clinician for the receipt of Radiology Critical Findings. [facility] ID [id number]."
== END | disposition home or self-care (01) ==
LOC: RADCTMAIN 09:37
PROVIDERS: ATTEND Internal Medicine Hematology & Oncology
DX: C34.92 Malignant neoplasm of unspecified part of left bronchus or lung (principal); R91.8 Other nonspecific abnormal finding of lung field
CPT/HCPCS: 82565; 84520; 71260; 36415; Q9967

== ENCOUNTER → 2022-02-01 | Outpatient (CLI) | payer MEDICARE, OTHER ==
--- NOTE | 2022-02-01 13:05 | MR ---
EXAMINATION TYPE: MR brain wo/w con DATE OF EXAM: 02/01/2022 12:20 PM COMPARISON: 10/21/2021 HISTORY: Lung ca CONTRAST: Patient received 7 mL intravenous Gadavist gadolinium contrast. Multiplanar and multispin-echo imaging of the brain was performed . Pre and post contrast enhanced i mages are obtained. The ventricles, basal cisterns and sulci overlying the cerebral convexities are mildly enlarged. There is evidence of mild periventricular white matter ischemic demyelination. Remote deep white matter insults are also noted. No acute edema is seen on diffusion weighted imaging. There is no evidence for midline shift or mass effect. Acute intracranial hemorrhage or extra-axial collection is not evident. New 3 mm enhancing lesion left cerebellum. Right frontal lesion is slightly smaller in size and measu res 5.8 mm vs 7.5 mm previously. No additional lesions seen. The paranasal sinuses and mastoid air cells are well-aerated. IMPRESSION: 1. New 3 mm enhancing lesion left cerebellum. Right frontal lesion is slightly smaller in size and m easures 5.8 mm vs 7.5 mm previously. No additional lesions seen.
== END | disposition home or self-care (01) ==
LOC: RADMRIMAIN 11:20
PROVIDERS: ATTEND Internal Medicine Hematology & Oncology
DX: G93.89 Other specified disorders of brain (principal)
CPT/HCPCS: 70553; A9585

== ENCOUNTER → 2022-04-18 | Outpatient (CLI) | payer MEDICARE, OTHER ==
--- NOTE | 2022-04-18 11:20 | MR ---
EXAMINATION TYPE: MR brain wo/w con DATE OF EXAM: 04/18/2022 COMPARISON: 02/01/2022 HISTORY: Lung cancer TECHNIQUE: Multiplanar, multisequence images of the brain and brainstem is performed without and with IV contras t, utilizing 6.5 mL intravenous Gadavist . FINDINGS: Diffusion weighted images demonstrate no evidence of a recent infarct or other diffusion ab normality. Enhancing masses: Previously noted 3 mm left cerebellar lesion now demonstrates ring enhancement and measures 8.5 mm. T here are 9 new ring enhancing lesions within the cerebellum relative to the prior exam the largest me asuring 1.4 cm within the left cerebellar hemisphere within the left cerebellar hemisphere which are new from prior exam. There is a new 5 mm ring-enhancing lesion in the right occipital lobe There is an additional 9 mm ring-enhancing lesion in the right posterior occipital lobe. There are 2 right temporal lobe lesions measuring 1.3 cm and 0.7 cm. Within the left midbrain, cerebral peduncle there is a ring-enhancing lesion measuring 1.1 cm. Is abnormal enhancement in the pineal gland not seen with certainty on prior exam now measuring 1.1 c m. There is a new 6 mm posterior left parietal lesion. There is a right frontal lobe ring-enhancing lesion measuring 1.5 x 1.2 cm previously measuring 0.6 c m. There are multiple less than 1 cm additional ring-enhancing lesions estimated at approximately 8 scat tered throughout both parietal lobes which are new from the prior exam. Brain: Mild generalized degenerative change. There is nonspecific white matter changes most typical of remot e ischemic white matter changes. Changes of chronic sinusitis are noted. Orbits are symmetric. Cranio cervical junction maintained. Calvarium is somewhat heterogeneous signal pattern which could be on the basis of metastatic change s fran the right bone window. IMPRESSION: 1. There is interval increase in size of the two previously noted enhancing lesions within the brain as measured above. Unfortunately, there are approximately 20-25 New ring enhancing lesions throughout the cerebellum, midbrain, and bilateral cerebral hemispheres re lative to prior exam. Additionally there is a new area of enhancement in the pineal gland measuring 1.1 cm. Findings compatible with progressive metastases.
== END | disposition home or self-care (01) ==
LOC: RADMRIMAIN 10:12
PROVIDERS: ATTEND Radiology Radiation Oncology
DX: C79.31 Secondary malignant neoplasm of brain (principal)
CPT/HCPCS: 70553; A9585

== ENCOUNTER → 2022-05-01 | Outpatient (CLI) | payer MEDICARE, OTHER ==
--- NOTE | 2022-05-01 16:00 | CT ---
EXAMINATION TYPE: CT ChestAbdPelvis wo con DATE OF EXAM: 05/01/2022 COMPARISON: Most recent CT January 17, 2022 and older studies. PET/CT September 02, 2021 HISTORY: f/u lung ca CT DLP: 1025 mGycm. Automated Exposure Control for Dose Reduction was Utilized. TECHNIQUE: CT scan of the thorax, abdomen and pelvis is performed with oral but without IV contrast. FINDINGS: LUNGS: Moderate to advanced underlying emphysematous changes are redemonstrated. Persistent 1.9 x 1.1 cm left lower lobe nodule not significantly changed in size or appearance from most recent CT when a ccounting for technical differences. Mild adjacent linear scarring with more prominent focal groundgl ass opacity laterally and inferior to this now identified. Small amount of pleural fluid in the right lung major fissure is now present. Prior 9 mm right lung nodule or thin-walled cyst in the lower dolly g is now not clearly seen. [id number] right basilar scarring and/or atelectasis is present. No pneumothorax seen bilaterally. MEDIASTINUM: Somewhat small size thyroid gland. Enlarged right and left pulmonary arteries consisten t with underlying pulmonary artery hypertension redemonstrated. No definitive new greater than 1 cm m ediastinal lymph nodes. Present size stable and upper limits of normal. Small to tiny pericardial eff usion redemonstrated . Coronary artery calcification again seen. OTHER: Moderate to large sized hiatal hernia with abnormal twisting of the herniated portion of stoma ch redemonstrated. LIVER/GB: No significant abnormality is appreciated. PANCREAS: No significant abnormality is seen. SPLEEN: No significant abnormality is seen. 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 KIDNEYS: No significant abnormality is seen. BOWEL: Oral contrast does not reach colonic level making evaluation of distal bowel slightly suboptim al. No suspicious small or large bowel dilatation. Diverticula throughout the left and sigmoid colon are redemonstrated. No CT evidence for acute diverticulitis. GENITAL ORGANS: Anteverted uterus. LYMPH NODES: No greater than 1cm abdominal or pelvic lymph nodes are appreciated. OSSEOUS STRUCTURES: Artifact from metallic hardware from right hip arthroplasty is present limiting e valuation of pelvic structures. OTHER: Moderate to severe calcified plaque of the aorta extends into branch vessels. Small fat-contai jessi bilateral inguinal hernias. IMPRESSION: Stable 1.9 cm spiculated nodule or neoplasm left lower lobe when accounting for technical differences. No new suspicious masses or recurrent adenopathy clearly seen. No new metastatic diseas e noted. No significant change from most recent CT.
== END | disposition home or self-care (01) ==
LOC: RADCTMAIN 13:05
PROVIDERS: ATTEND Radiology Radiation Oncology
DX: C79.31 Secondary malignant neoplasm of brain (principal); C34.32 Malignant neoplasm of lower lobe, left bronchus or lung; Z92.3 Personal history of irradiation
CPT/HCPCS: 36415; 71250; 74176; 82565; 84520

== ENCOUNTER 2022-06-01 14:58 | Inpatient (IN) | payer MEDICARE, OTHER ==
--- NOTE | 2022-06-01 15:52 | ED ---
General Adult HPI - General Chief complaint: Altered Mental Status Stated complaint: AMS Time Seen by Provider: 06/01/22 15:04 Source: EMS Mode of arrival: EMS Limitations: no limitations - History of Present Illness Initial comments: This is an 82-year-old female was brought into the emergency department via EMS for altered mental status. The patient was a note times one and cannot provide a further history therefore the history was obtained by the nurse who received the information from EMS. 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 The patient was last known at her baseline at 9 PM last night. The patient was increasingly altered and therefore EMS was called. On arrival, the patient did not complain of any pain or distress however was ANO 1. The patient was resting in bed comfortably and cannot provide any further history nor answers to any questions. - Related Data Home Medications Medication Instructions Recorded Confirmed Levothyroxine Sodium [Synthroid] 50 mcg PO DAILY 06/01/22 06/01/22 dexAMETHasone [Decadron] 4 mg PO DAILY 06/01/22 06/01/22 Allergies Allergy/AdvReac Type Severity Reaction Status Date / Time No Known Allergies Allergy Verified 10/06/21 11:22 Review of Systems ROS Statement: Those systems with pertinent positive or pertinent negative responses have been documented in the HPI. ROS Other: All systems not noted in ROS Statement are negative. Limitations: ROS unobtainable due to patients medical condition (AMS, ANO x1) Past Medical History Past Medical History: COPD, Diabetes Mellitus, Hyperlipidemia, Hypertension Additional Past Medical History / Comment(s): Hx Osteoporosis, last bone scan was normal. O2 @2.5 L per N/C ATC. History of Any Multi-Drug Resistant Organisms: None Reported Past Surgical History: Joint Replacement, Orthopedic Surgery, Tonsillectomy Additional Past Surgical History / Comment(s): Eyelids lifts, trigger finger release left pointer finger, right hip and right knee replacements. Past Anesthesia/Blood Transfusion Reactions: No Reported Reaction Past Psychological History: No Psychological Hx Reported Smoking Status: Former smoker Past Alcohol Use History: None Reported Past Drug Use History: None Reported - Past Family History Sister(s) Family Medical History: Cancer General Exam Limitations: altered mental status General appearance: alert, in no apparent distress Head exam: Present: atraumatic, normocephalic Eye exam: Present: normal appearance, PERRL, EOMI Pupils: Present: normal accommodation ENT exam: Present: normal exam, normal oropharynx, mucous membranes moist Neck exam: Present: normal inspection, full ROM Respiratory exam: Present: normal lung sounds bilaterally Cardiovascular Exam: Present: regular rate, normal rhythm, normal heart sounds GI/Abdominal exam: Present: soft, normal bowel sounds Extremities exam: Present: normal inspection, full ROM Back exam: Present: normal inspection, full ROM Neurological exam: Present: alert, altered, CN II-XII intact Psychiatric exam: Present: normal affect, normal mood Skin exam: Present: warm, dry Course Vital Signs 06/01/22 15:14 Temperature 98.2 F Pulse Rate 75 Respiratory 18 Rate Blood Pressure 129/75 O2 Sat by Pulse 93 L Oximetry EKG Findings - EKG Comments: EKG Findings:: An EKG was obtained and read by myself. Rate was 90, AK interval was 152, QRS duration was 91 and QTc was 423. This EKG was normal sinus rhythm without any ST segment elevations or depressions noted. There was no old EKGs for comparison at this time. Medical Decision Making - Medical Decision Making The patient was seen and evaluated in the emergency department. Physical exam, the patient was resting in bed without any acute distress. The patient's vital signs were within normal limits. The patient was ANOx1 and was increasingly altered. Altered mental status laboratory workup as well as imaging was obtained including a CT head, chest x-ray as well as laboratory workup. L aboratory workup was largely within normal limits. Imaging is as below. Chest x-ray was obtained and showed a large area of the left upper lobe and perihilar consolidation. This appears new from a computed tomography scan in April. There for pneumonia would be favored over progressive neoplasm. Due to this, the patient will be treated for Rocephin and azithromycin for community acquired pneumonia. CT of the brain showed multiple intracranial masses compatible with metastases. There was involvement of both cerebral and cerebellar hemispheres with involvement of the brain since suspected. This could be an increase in the recent MRI. There was no midline shift. Some of the lesions noted by MRI are not well visualized on the computed tomography scan. There is also a suspected small hemorrhagic component to the right temporal lobe metastasis seen best on image 24. An MRI was recommended at this time. The patient continued to remain stable. I did speak with the patient's family regarding the results. Due to the patient's continued altered mental status in the setting of concerning findings above, they did request continued treatment of the community-acquired pneumonia. The patient did have a advanced directive of no prolonging life procedures. The patient's family did support this and the patient's family were given information regarding hospice. They did request to be seen and evaluated by their radiation oncologist as an admission before making any decisions for hospice. I spoke with the admitting service and I spoke with Dominique Gan who did agree with this plan. Both Dr. Riggs and Dr. Mcdonough were placed in consult and will see the patient tomorrow. The patient's family was appreciative of the hospice information and will make a determination once they speak with the specialist tomorrow. The family was told the plan for admission and they're agreeable. The patient was admitted in stable condition. - Lab Data Result diagrams: 06/01/22 15:35 06/01/22 15:34 Lab Results 06/01/22 06/01/22 06/01/22 Range/Units 15:34 15:34 15:35 WBC 7.4 (3.8-10.6) k/uL RBC 3.27 L (3.80-5.40) m/uL Hgb 9.9 L (11.4-16.0) gm/dL Hct 30.5 L (34.0-46.0) % MCV 93.4 (80.0-100.0) fL MCH 30.3 (25.0-35.0) pg MCHC 32.5 (31.0-37.0) g/dL RDW 16.4 H (11.5-15.5) % Plt Count 135 L (150-450) k/uL MPV 7.5 Neutrophils % 89 % Lymphocytes % 5 % Monocytes % 4 % Eosinophils % 1 % Basophils % 0 % Neutrophils # 6.6 (1.3-7.7) k/uL Lymphocytes # 0.3 L (1.0-4.8) k/uL Monocytes # 0.3 (0-1.0) k/uL Eosinophils # 0.1 (0-0.7) k/uL Basophils # 0.0 (0-0.2) k/uL Hypochromasia Slight Anisocytosis Slight Sodium 143 (137-145) mmol/L Potassium 3.9 (3.5-5.1) mmol/L Chloride 110 H (98-107) mmol/L Carbon Dioxide 29 (22-30) mmol/L Anion Gap 4 mmol/L BUN 27 H (7-17) mg/dL Creatinine 1.18 H (0.52-1.04) mg/dL Est GFR (CKD-EPI)AfAm 50 (>60 ml/min/1.73 sqM) Est GFR (CKD-EPI)NonAf 43 (>60 ml/min/1.73 sqM) Glucose 116 H (74-99) mg/dL Plasma Lactic Acid Rajesh 1.8 (0.7-2.0) mmol/L Calcium 8.4 (8.4-10.2) mg/dL Magnesium 1.9 (1.6-2.3) mg/dL Total Bilirubin 0.5 (0.2-1.3) mg/dL AST 22 (14-36) U/L ALT 30 (4-34) U/L Alkaline Phosphatase 64 (38-126) U/L Ammonia <9 (<30) umol/L Total Protein 5.5 L (6.3-8.2) g/dL Albumin 3.2 L (3.5-5.0) g/dL Coronavirus (PCR) (Not Detectd) 06/01/22 Range/Units 15:35 WBC (3.8-10.6) k/uL RBC (3.80-5.40) m/uL Hgb (11.4-16.0) gm/dL Hct (34.0-46.0) % MCV (80.0-100.0) fL MCH (25.0-35.0) pg MCHC (31.0-37.0) g/dL RDW (11.5-15.5) % Plt Count (150-450) k/uL MPV Neutrophils % % Lymphocytes % % Monocytes % % Eosinophils % % Basophils % % Neutrophils # (1.3-7.7) k/uL Lymphocytes # (1.0-4.8) k/uL Monocytes # (0-1.0) k/uL Eosinophils # (0-0.7) k/uL Basophils # (0-0.2) k/uL Hypochromasia Anisocytosis Sodium (137-145) mmol/L Potassium (3.5-5.1) mmol/L Chloride (98-107) mmol/L Carbon Dioxide (22-30) mmol/L Anion Gap mmol/L BUN (7-17) mg/dL Creatinine (0.52-1.04) mg/dL Est GFR (CKD-EPI)AfAm (>60 ml/min/1.73 sqM) Est GFR (CKD-EPI)NonAf (>60 ml/min/1.73 sqM) Glucose (74-99) mg/dL Plasma Lactic Acid Rajesh (0.7-2.0) mmol/L Calcium (8.4-10.2) mg/dL Magnesium (1.6-2.3) mg/dL Total Bilirubin (0.2-1.3) mg/dL AST (14-36) U/L ALT (4-34) U/L Alkaline Phosphatase (38-126) U/L Ammonia (<30) umol/L Total Protein (6.3-8.2) g/dL Albumin (3.5-5.0) g/dL Coronavirus (PCR) Not Detected (Not Detectd) Critical Care Time Critical Care Time: Yes Total Critical Care Time: 35 Disposition Clinical Impression: Community acquired bacterial pneumonia, Brain metastases, AMS (altered mental status) Disposition: ADMITTED IP TO THIS [facility] Condition: Stable Is patient prescribed a controlled substance at d/c from ED?: No Referrals: Sona Friedman MD [Primary Care Provider] - 1-2 days Time of Disposition: 17:30 Decision Date: 06/01/22 Decision Time: 17:30
--- NOTE | 2022-06-01 15:56 | XR ---
EXAMINATION TYPE: XR chest 2V DATE OF EXAM: 06/01/2022 COMPARISON: 10/06/2021 TECHNIQUE: PA and lateral views submitted. HISTORY: Confusion FINDINGS: Large area of masslike consolidation in the left upper lobe correlate for pneumonia. Hyperinflation. Small bilateral effusion. Underlying COPD with cardiomegaly. Atherosclerotic change aorta. Degenerati ve change of the spine. IMPRESSION: 1. Large area of the left upper lobe and perihilar consolidation. This appears new from CT scan of therefore pneumonia would BE favored over progressive neoplasm. Correlate clinically. Follow -up CT scan could be obtained to assess for lung mass.
[2022-06-01 16:04] LABS: Anisocytosis Slight; Basophils % (A) 0 %; Eosinophils # (A) 0.1 k/uL (0-0.7); Eosinophils % (A) 1 %; HCT 30.5 % (34.0-46.0); HGB 9.9 gm/dL (11.4-16.0); Hypochromasia Slight; Lymphocytes # (A) 0.3 k/uL (1.0-4.8); Lymphocytes % (A) 5 %; MCH 30.3 pg (25.0-35.0); MCHC 32.5 g/dL (31.0-37.0); MCV 93.4 fL (80.0-100.0); Mean Platelet Volume 7.5; Monocytes # (A) 0.3 k/uL (0-1.0); Monocytes % (A) 4 %; Neutrophils # (A) 6.6 k/uL (1.3-7.7); Neutrophils % (A) 89 %; Platelet Count 135 k/uL (150-450); RBC 3.27 m/uL (3.80-5.40); RDW 16.4 % (11.5-15.5); WBC 7.4 k/uL (3.8-10.6)
--- NOTE | 2022-06-01 16:07 | CT ---
EXAMINATION TYPE: CT brain wo con DATE OF EXAM: 06/01/2022 COMPARISON: 04/18/2022 HISTORY: AMS, hx lung ca w/ mets CT DLP: 1127.4 mGycm Automated exposure control for dose reduction was used. FINDINGS: large mass in the right temporal lobe is seen measuring 1.8 cm. This lesion has somewhat hyperdense c omponents included have a hemorrhagic component to the metastases. A pineal gland region mass is also seen measuring 1.4 cm. Additional mass in the right frontal lobe with surrounding vasogenic edema measuring 2 cm. Suspect a smaller mass left frontal lobe measuring 1.2 cm with surrounding vasogenic edema. Additiona lly appears to be an extra-axial mass along the superior left parietal convexity measuring 1.7 cm. Additional areas of low attenuation including the anterior left temporal lobe, bilateral cerebellum, bilateral occipital lobe are suspicious for areas of metastases not well seen by noncontrast CT scan but reported by prior MRI. Suspect there may be progressive size in some of the lesions. Degenerative change of the spine noted. Abnormal attenuation involving the midbrain on the left is se en. Abnormal attenuation in the cerebellum likely represents vasogenic edema from the previous report ed cerebellar masses with the largest suspected to be in the left measuring 1.9 cm. Nonspecific low-attenuation the white matter suggestive of remote white matter ischemia. No midline shift or mass effect. Suspect remote lacunar infarct right basal ganglia or thalamus. Intr acranial atherosclerotic changes are seen. Orbits are symmetric. IMPRESSION: 1. There are multiple intracranial masses compatible with metastases. Involvement of both cerebral an d cerebellar hemispheres with involvement of the brainstem suspected. This could be increased from th e recent MRI. No midline shift. Recommend repeat MRI. Some of the lesions noted by MRI are not as wel l-seen by noncontrast CT scan. 2. Suspect may be a small hemorrhagic component to the right temporal lobe metastases seen best on ax ial image 24. As noted above MRI recommended.
[2022-06-01 16:26] LABS: Lactic Acid, Venous 1.8 mmol/L (0.7-2.0)
[2022-06-01 16:29] LABS: Albumin 3.2 g/dL (3.5-5.0); Calcium 8.4 mg/dL (8.4-10.2); Magnesium 1.9 mg/dL (1.6-2.3); Potassium 3.9 mmol/L (3.5-5.1); Total Bilirubin 0.5 mg/dL (0.2-1.3); Total Protein 5.5 g/dL (6.3-8.2)
[2022-06-01] MEDS ORDERED: AZITHROMYCIN 500 MG in SODIUM CHLORIDE 0.9% 250 ML IVPB STA (17:40)
[2022-06-01] MEDS ORDERED: cefTRIAXone IN SWFI 1,000 MG/10 ML SYRINGE IVP STA (17:40)
[2022-06-01] MEDS ORDERED: NALOXONE 0.4 MG/ML 1 ML VIAL IV PRN (17:42)
[2022-06-01] MEDS: SODIUM CHLORIDE 0.9% 1,000 ML IV SCH (18:34)
[2022-06-01 19:50] VITALS: RESP 16
[2022-06-01 23:20] LABS: Glucose,Whole Blood 140 mg/dL (70-110)
[2022-06-01 23:42] LABS: Appearance,Urine Clear (Clear); Bilirubin,Urine Negative (Negative); Blood,Urine Negative (Negative); Color,Urine Yellow; Glucose,Urine (UA) Negative (Negative); Ketones,Urine Negative (Negative); Leukocyte Esterase,Urine Negative (Negative); Nitrite,Urine Negative (Negative); Protein,Urine Trace (Negative); Specific Gravity,Urine 1.018 (1.001-1.035); Urobilinogen,Urine <2.0 mg/dL (<2.0)
[2022-06-02] MEDS ORDERED: LEVOTHYROXINE 50 MCG TAB PO SCH (06:30)
[2022-06-02] MEDS: SODIUM CHLORIDE 0.9% 1,000 ML IV SCH (08:20)
[2022-06-02 10:35] LABS: Basophils # (A) 0.01 X 10*3/uL (0.00-0.10); Basophils % (A) 0.2 %; Eosinophils # (A) 0.02 X 10*3/uL (0.04-0.35); Eosinophils % (A) 0.3 %; HCT 29.2 % (37.2-46.3); Lymphocytes # (A) 0.53 X 10*3/uL (0.90-5.00); Lymphocytes % (A) 8.1 %; MCH 29.9 pg (27.0-32.0); MCHC 30.8 g/dL (32.0-37.0); Mean Platelet Volume 9.6 fL (9.5-12.2); Monocytes # (A) 0.48 X 10*3/uL (0.20-1.00); Monocytes % (A) 7.4 %; NRBC Per 100 WBC 0 /100 WBCS (0.0-0.0); Neutrophils # (A) 5.36 X 10*3/uL (1.80-7.70); Platelet Count 119 X 10*3/uL (140-440); RBC 3.01 X 10*6/uL (4.10-5.20); RDW 17.2 % (11.5-14.5); WBC 6.53 X 10*3/uL (4.50-10.00)
[2022-06-02 10:47] LABS: African American GFR (CKD) 54.1 (60.0-200.0); Anion Gap 10.2 mmol/L (10.00-18.00); BUN/Creat Ratio 23.09 Ratio (12.00-20.00); Blood Urea Nitrogen 25.4 mg/dL (9.0-27.0); Calcium 8.7 mg/dL (8.7-10.3); Carbon Dioxide 23.8 mmol/L (20.0-27.5); Non-African American GFR(CKD) 46.7 (60.0-200.0); Potassium 4.2 mmol/L (3.5-5.5)
[2022-06-02 12:15] VITALS: BP 148/74; PULSE 65; TEMP 98.9
[2022-06-02] MEDS ORDERED: DEXAMETHASONE SOD PHOSPHATE 4 MG/ML 1 ML VIAL IVP SCH (12:45)
--- NOTE | 2022-06-02 16:23 | P.HPIM ---
History of Present Illness 80-year-old female was brought in because of altered mental status probably will resume she may be having stroke patient does have history of metastatic lung cancer with metastases to the brain and patient is found to have multiple i ntrarenal masses consistent with metastatic disease in both cerebral and cerebellar hemispheres. Patient and family discussed with oncologist regarding further options patient was on immunotherapy there are no known many options left. Family decided that they will take the patient on hospice. Patient was alert oriented 1 yesterday which improved mildly now patient was on Decadron and was continued on Decadron here in the hospital REVIEW OF SYSTEMS: Unable to obtain PHYSICAL EXAMINATION: GENERAL: The patient is alert and oriented x1, not in any acute distress. Well developed, well nourished. HEENT: Pupils are round and equally reacting to light. EOMI. No scleral icterus. No conjunctival pallor. Normocephalic, atraumatic. No pharyngeal erythema. No thyromegaly. CARDIOVASCULAR: S1 and S2 present. No murmurs, rubs, or gallops. PULMONARY: Chest is clear to auscultation, no wheezing or crackles. ABDOMEN: Soft, nontender, nondistended, normoactive bowel sounds. No palpable organomegaly. MUSCULOSKELETAL: No joint swelling or deformity. EXTREMITIES: No cyanosis, clubbing, or pedal edema. NEUROLOGICAL: Gross neurological examination did not reveal any focal deficits. SKIN: No rashes. Assessment and plan Altered mental status secondary to metastatic disease from lung cancer. Patient will be discharged today and hospice -COPD without any acute exacerbation Patient will be discharged today on hospice Past Medical History Past Medical History: Cancer, COPD, Diabetes Mellitus, Hyperlipidemia, Hypertension Additional Past Medical History / Comment(s): Hx Osteoporosis, last bone scan was normal. O2 @2.5 L per [facility] ATC, lung cancer with brain mets, pressure ulcer stage 2 coccyx present on admission History of Any Multi-Drug Resistant Organisms: None Reported Past Surgical History: Joint Replacement, Orthopedic Surgery, Tonsillectomy Additional Past Surgical History / Comment(s): Eyelids lifts, trigger finger release left pointer finger, right hip and right knee replacements, endobronchal ultrasound, bronchoscopy 09/2021 Past Anesthesia/Blood Transfusion Reactions: No Reported Reaction Past Psychological History: No Psychological Hx Reported Smoking Status: Former smoker Past Alcohol Use History: None Reported Additional Past Alcohol Use History / Comment(s): Quit smoking 20 yrs ago, smoked for 48 yrs, 1 PPD. Past Drug Use History: None Reported - Past Family History Sister(s) Family Medical History: Cancer Medications and Allergies Home Medications Medication Instructions Recorded Confirmed Type Levothyroxine Sodium [Synthroid] 50 mcg PO DAILY 06/01/22 06/01/22 History dexAMETHasone [Decadron] 4 mg PO DAILY 06/01/22 06/01/22 History Allergies Allergy/AdvReac Type Severity Reaction Status Date / Time No Known Allergies Allergy Verified 10/06/21 11:22 Physical Exam Vitals: Vital Signs Temp Pulse Pulse Resp BP BP BP 06/02/22 12:14 98.9 F 65 16 148/74 06/02/22 04:11 98.1 F 61 16 158/70 06/01/22 23:12 63 147/78 06/01/22 20:00 98.1 F 85 16 132/84 06/01/22 19:49 98.8 F 81 16 123/76 06/01/22 19:10 92 18 154/81 06/01/22 18:26 90 18 152/94 Pulse Ox 06/02/22 12:14 94 L 06/02/22 04:11 96 06/01/22 23:12 95 06/01/22 20:00 94 L 06/01/22 19:49 98 06/01/22 19:10 96 06/01/22 18:26 96 Intake and Output 06/02/22 06/02/22 06/02/22 06:59 14:59 22:59 Output Total 500 Balance -500 Output: Urine 500 Other: Voiding Method Incontinent Results CBC & Chem 7: 06/02/22 05:06 06/02/22 05:06 Labs: Abnormal Lab Results - Last 24 Hours (Table) 06/01/22 06/01/22 06/01/22 Range/Units 15:34 23:18 23:30 RBC (4.10-5.20) X 10*6/uL Hgb (12.0-15.0) g/dL Hct (37.2-46.3) % MCHC (32.0-37.0) g/dL RDW (11.5-14.5) % Plt Count (140-440) X 10*3/uL Immature Gran # (0.00-0.04) X 10*3/uL Lymphocytes # (0.90-5.00) X 10*3/uL Eosinophils # (0.04-0.35) X 10*3/uL Chloride 110 H (98-107) mmol/L BUN 27 H (7-17) mg/dL Creatinine 1.18 H (0.52-1.04) mg/dL Est GFR (CKD-EPI)AfAm (60.0-200.0) Est GFR (CKD-EPI)NonAf (60.0-200.0) BUN/Creatinine Ratio (12.00-20.00) Ratio Glucose 116 H (74-99) mg/dL POC Glucose (mg/dL) 140 H (70-110) mg/dL Total Protein 5.5 L (6.3-8.2) g/dL Albumin 3.2 L (3.5-5.0) g/dL Urine Protein Trace H (Negative) 06/02/22 06/02/22 Range/Units 05:06 05:06 RBC 3.01 L (4.10-5.20) X 10*6/uL Hgb 9.0 L (12.0-15.0) g/dL Hct 29.2 L (37.2-46.3) % MCHC 30.8 L (32.0-37.0) g/dL RDW 17.2 H (11.5-14.5) % Plt Count 119 L (140-440) X 10*3/uL Immature Gran # 0.13 H (0.00-0.04) X 10*3/uL Lymphocytes # 0.53 L (0.90-5.00) X 10*3/uL Eosinophils # 0.02 L (0.04-0.35) X 10*3/uL Chloride 110 H (98-107) mmol/L BUN (7-17) mg/dL Creatinine (0.52-1.04) mg/dL Est GFR (CKD-EPI)AfAm 54.1 L (60.0-200.0) Est GFR (CKD-EPI)NonAf 46.7 L (60.0-200.0) BUN/Creatinine Ratio 23.09 H (12.00-20.00) Ratio Glucose (74-99) mg/dL POC Glucose (mg/dL) (70-110) mg/dL Total Protein (6.3-8.2) g/dL Albumin (3.5-5.0) g/dL Urine Protein (Negative) Thrombosis Risk Factor Assmnt - Choose All That Apply Any of the Below Risk Factors Present?: Yes Other Risk Factors: Yes Each Risk Factor Represents 3 Points: Age 75 years or older Thrombosis Risk Factor Assessment Total Risk Factor Score: 3 Thrombosis Risk Factor Assessment Level: Moderate Risk
--- NOTE | 2022-06-02 16:23 | P.DS ---
Providers Date of admission: 06/01/22 17:42 Attending physician: Fausto Grayson Consults: 06/01/22 17:54 Consult Physician Routine Consulting Provider: Dima Riggs Consult Reason/Comments: metastatic lung cancer, family considering hospice wants to speak with you Do you want consulting provider notified?: Yes 06/01/22 17:55 Consult Physician Routine Consulting Provider: Sina Jernigan Consult Reason/Comments: Progression of brain mets/fam considering hospice wants to talk to oncology Do you want consulting provider notified?: Yes Primary care physician: Sona Friedman Hospital Course: Refer to [facility] for further details Patient Condition at Discharge: Stable Plan - Discharge Summary Discharge Rx Participant: Yes New Discharge Prescriptions: Continue Levothyroxine Sodium [Synthroid] 50 mcg PO DAILY dexAMETHasone [Decadron] 4 mg PO DAILY Discharge Medication List Levothyroxine Sodium [Synthroid] 50 mcg PO DAILY 06/01/22 [History] dexAMETHasone [Decadron] 4 mg PO DAILY 06/01/22 [History] Follow up Appointment(s)/Referral(s): Sona Friedman MD [Primary Care Provider] - 3 Days Discharge Disposition: HOME WITH HOSPICE
--- NOTE | 2022-06-03 09:07 | P.CONS ---
History of Present Illness - Reason for Consult Consult date: 06/02/22 SCLC, progressive disease Requesting physician: Dominique Gan - Chief Complaint AMS - History of Present Illness Deborah presented with rapidly progressive cough & SOB X 3-4 weeks, CT & PET suggestive of LLL mass & mediastinal lymphadenopathy. She had bronchoscopy by Dr Reeves on 10/06/21, small cell lung cancer, MRI brain revealed a 7mm lesion with surrounding vasogenic edema in the rt frontal lobe, thankfully, pt is completely asymptomatic, neuro exam was WNL. Daughter confirmed no changes in personality or cognition. The patient smoked 1 PPD X 30 yr, quit smoking 20 years ago 10/2021 she started carbo/[employer] with [employer]. She did have radiation. CTCAP stable di sease. She is admitted with AMS, CT brain showing lesions with vasogenic edema. Pt does not appear to be uncomfortable, not reporting any pain, she is very confused. Review of Systems Focused ROS is neg except as stated in HPI Past Medical History Past Medical History: Cancer, COPD, Diabetes Mellitus, Hyperlipidemia, Hypertension Additional Past Medical History / Comment(s): Hx Osteoporosis, last bone scan was normal. O2 @2.5 L per [facility], lung cancer with brain mets, pressure ulcer stage 2 coccyx present on admission History of Any Multi-Drug Resistant Organisms: None Reported Past Surgical History: Joint Replacement, Orthopedic Surgery, Tonsillectomy Additional Past Surgical History / Comment(s): Eyelids lifts, trigger finger release left pointer finger, right hip and right knee replacements, endobronchal ultrasound, bronchoscopy 09/2021 Past Anesthesia/Blood Transfusion Reactions: No Reported Reaction Past Psychological History: No Psychological Hx Reported Smoking Status: Former smoker Past Alcohol Use History: None Reported Additional Past Alcohol Use History / Comment(s): Quit smoking 20 yrs ago, smoked for 48 yrs, 1 PPD. Past Drug Use History: None Reported - Past Family History Sister(s) Family Medical History: Cancer Medications and Allergies Home Medications Medication Instructions Recorded Confirmed Type Levothyroxine Sodium [Synthroid] 50 mcg PO DAILY 06/01/22 06/01/22 History dexAMETHasone [Decadron] 4 mg PO DAILY 06/01/22 06/01/22 History Allergies Allergy/AdvReac Type Severity Reaction Status Date / Time No Known Allergies Allergy Verified 10/06/21 11:22 Physical Exam Vitals: Vital Signs Temp Pulse Pulse Resp BP BP BP 06/02/22 04:11 98.1 F 61 16 158/70 06/01/22 23:12 63 147/78 06/01/22 20:00 98.1 F 85 16 132/84 06/01/22 19:49 98.8 F 81 16 123/76 06/01/22 19:10 92 18 154/81 06/01/22 18:26 90 18 152/94 06/01/22 15:14 98.2 F 75 18 129/75 Pulse Ox 06/02/22 04:11 96 06/01/22 23:12 95 06/01/22 20:00 94 L 06/01/22 19:49 98 06/01/22 19:10 96 06/01/22 18:26 96 06/01/22 15:14 93 L Intake and Output 06/01/22 06/02/22 06/02/22 22:59 06:59 14:59 Output Total 500 Balance -500 Output: Urine 500 Other: Weight 64.41 kg - Constitutional General appearance: average body habitus, cooperative, no acute distress - EENT Eyes: anicteric sclerae, EOMI ENT: hearing grossly normal - Respiratory Respiratory: bilateral: CTA - Cardiovascular Rhythm: regular Heart sounds: normal: S1, S2 Abnormal Heart Sounds: no systolic murmur, no diastolic murmur, no rub, no S3 Gallop, no S4 Gallop, no click, no other leg Peripheral Edema: bilateral: None - Gastrointestinal General gastrointestinal: normal bowel sounds, soft - Musculoskeletal Musculoskeletal: generalized weakness - Psychiatric Alert. When asked what your was patient said 1954, when asked where she was patient's and that she was in the doctor's office. When I hope my hands up and asked the patient to grasp my hands she was unable to appropriately maneuver her right arm to make contact with my hand. Affect is flat, mood is calm Results CBC & Chem 7: 06/02/22 05:06 06/02/22 05:06 Labs: Abnormal Lab Results - Last 24 Hours (Table) 06/01/22 06/01/22 06/01/22 Range/Units 15:34 15:35 23:18 RBC 3.27 L (3.80-5.40) m/uL Hgb 9.9 L (11.4-16.0) gm/dL Hct 30.5 L (34.0-46.0) % RDW 16.4 H (11.5-15.5) % Plt Count 135 L (150-450) k/uL Lymphocytes # 0.3 L (1.0-4.8) k/uL Chloride 110 H (98-107) mmol/L BUN 27 H (7-17) mg/dL Creatinine 1.18 H (0.52-1.04) mg/dL Glucose 116 H (74-99) mg/dL POC Glucose (mg/dL) 140 H (70-110) mg/dL Total Protein 5.5 L (6.3-8.2) g/dL Albumin 3.2 L (3.5-5.0) g/dL Urine Protein (Negative) 06/01/22 Range/Units 23:30 RBC (3.80-5.40) m/uL Hgb (11.4-16.0) gm/dL Hct (34.0-46.0) % RDW (11.5-15.5) % Plt Count (150-450) k/uL Lymphocytes # (1.0-4.8) k/uL Chloride (98-107) mmol/L BUN (7-17) mg/dL Creatinine (0.52-1.04) mg/dL Glucose (74-99) mg/dL POC Glucose (mg/dL) (70-110) mg/dL Total Protein (6.3-8.2) g/dL Albumin (3.5-5.0) g/dL Urine Protein Trace H (Negative) Chest x-ray: report reviewed CT Scan - head: report reviewed Assessment and Plan (1) Small cell lung cancer Status: Acute Priority: High Code(s): C34.90 - MALIGNANT NEOPLASM OF UNSP PART OF UNSP BRONCHUS OR LUNG SNOMED Code(s): 799142652 (2) AMS (altered mental status) Status: Acute Priority: High Code(s): R41.82 - ALTERED MENTAL STATUS, UNSPECIFIED SNOMED Code(s): 915956129 (3) Brain metastases Status: Acute Priority: High Code(s): C79.31 - SECONDARY MALIGNANT NEOPLASM OF BRAIN SNOMED Code(s): 60926780 Plan: SCLS, progressive disease. Dr. Jernigan discussed case with pt daughter. All questions and concerns addressed. Plan is home with hospice. attests: I have seen and examined patient, performed H&P, developed impression and plan of care. Discussed with dictator. Agree with documentation, dictated as a scribe Time with Patient: Greater than 30
--- NOTE | 2022-06-09 15:42 | CDI ---
Documentation Clarification Form Date: 06/09/2022 03:38:00 PM From: Loretta Kelly Admit Date: 06/01/2022 05:42:00 PM Patient Name: Deborah Fernandez Visit Number: [id number] Discharge Date: 06/02/2022 07:27:00 PM ATTENTION: The Clinical Documentation Specialists (CDI) and [facility] Coding Staff appreciate your assistance in clarifying documentation. Please respond to the clarification below the line at the bottom and electronically sign. The CDI & [facility] Coding staff will review the response and follow-up if needed. Please note: Queries are made part of the Legal Health Record. If you have any questions, please contact the author of this message via ITS. Dr. Fausto Grayson Community acquired bacterial Pneumonia is documented 06/01/22 in the ED Note. Additional clarification regarding pneumonia is requested. History/Risk Factors: metastatic lung cancer to the brain, altered mental status, COPD, DM, HLD, HTN, Osteoporosis, hx smoker, hx radiation, vasogenic edema Clinical Indicators: patient history- progressive cough, SOB for 3-4 weeks, CT PET suggestive of LLL Mass mediastinal lymphadenopathy. dx'ed with small cell lung cancer, 7mm lesion with surrounding vasogenic edema in the right frontal lobe WBC/Left shift: 7.4 X-ray: large area of mass like consolidation in left upper lobe, appears new. Per X-RAY "pneumonia would be favored over progressive neoplasm" Lung/Breathing assessment: normal lung sounds bilaterally Treatment: antibiotics Antibiotics: azithromycin and Rocephin Resp: 18 O2: 93 on room air Please clarify if pneumonia was ruled in or out: [ ] Community acquired Bacterial Pneumonia, specify causal organism (if known) [ ] Community acquired Bacterial Pneumonia Ruled Out [ x] Other, please specify ___as per my note, no pneumonia if not documented____ [ ] Unable to determine MTDD
== END 2022-06-02 19:27 | disposition hospice, home (50) | DRG 55 ==
LOC: EC 14:58 → 5NMEDONC 17:42
PROVIDERS: ADMIT Internal Medicine; ATTEND Internal Medicine
DX: C79.31 Secondary malignant neoplasm of brain (principal); C34.90 Malignant neoplasm of unspecified part of unspecified bronchus or lung; J44.0 Chronic obstructive pulmonary disease with (acute) lower respiratory infection; R41.82 Altered mental status, unspecified; R59.0 Localized enlarged lymph nodes; E11.9 Type 2 diabetes mellitus without complications; E78.5 Hyperlipidemia, unspecified; I10 Essential (primary) hypertension; M81.0 Age-related osteoporosis without current pathological fracture; L89.152 Pressure ulcer of sacral region, stage 2; Z96.651 Presence of right artificial knee joint; Z96.641 Presence of right artificial hip joint; Z20.822 Contact with and (suspected) exposure to COVID-19; Z51.5 Encounter for palliative care; Z79.899 Other long term (current) drug therapy; Z79.890 Hormone replacement therapy; Z87.891 Personal history of nicotine dependence; Z92.3 Personal history of irradiation
CPT/HCPCS: 36415; 70450; 71046; 80048; 80053; 81003; 82140; 83605; 83735; 85025; 87635; 93005; 96365; 96375; 99291